=== PATIENT | female | born 1960 | race Caucasian/White ===

== ENCOUNTER 2020-07-10 08:44 | Day surgery (SDC) | payer MEDICARE ==
[2020-07-10] MEDS ORDERED: Depo-Medrol 40 MG/ML IM ONE (08:45)
[2020-07-10] MEDS ORDERED: Sodium Chloride 0.9(Preservative Free) 10 ML IJ ONE (08:45)
[2020-07-10] MEDS ORDERED: Ketamine HCl 50 MG/ML ONE (09:59)
[2020-07-10] MEDS ORDERED: DIPRIVAN 200 MG/20 ML IV ONE (09:59)
[2020-07-10] MEDS ORDERED: MORPHINE SULFATE 10 MG/ML ONE (10:20)
--- NOTE | 2020-07-10 10:56 | XRAY ---
Indication: Left L4-S1 transforaminal JAMES. Intraoperative fluoroscopy provided for 45 seconds. 4 digital spot images submitted for interpretation demonstrates posterior needle tips projecting over the expected left L4 and L5 nerve roots. Small amount of contrast injected for needle tip placement. Correlate with intraoperative findings/report.
--- NOTE | 2020-07-10 11:36 | XRAY ---
45 seconds fluoroscopy time in surgery for left L4S1 transforaminal JAMES.
[2020-07-10] MEDS ORDERED: Lactated Ringers 1,000 ML IV ONE (13:51)
== END 2020-07-10 10:24 | disposition home or self-care (01) ==
LOC: SDC-PAIN 08:44
PROVIDERS: ATTEND Psychiatry & Neurology Pain Medicine
DX: M54.16 Radiculopathy, lumbar region (principal); E11.9 Type 2 diabetes mellitus without complications; I10 Essential (primary) hypertension; I25.10 Atherosclerotic heart disease of native coronary artery without angina pectoris; E78.5 Hyperlipidemia, unspecified
CPT/HCPCS: 64483; 64484; 72100; 77003; 82947; J1030; J2270; J2704; Q9966

== ENCOUNTER 2020-08-28 08:57 | Day surgery (SDC) | payer MEDICARE ==
[2020-08-28] MEDS ORDERED: Depo-Medrol 40 MG/ML IM ONE (08:58)
[2020-08-28] MEDS ORDERED: Xylocaine 1% Vial 30 ML PF IJ ONE (08:58)
[2020-08-28] MEDS ORDERED: Sodium Chloride 0.9(Preservative Free) 10 ML IJ ONE (08:58)
[2020-08-28] MEDS ORDERED: DIPRIVAN 200 MG/20 ML IV ONE (10:02)
[2020-08-28] MEDS ORDERED: MORPHINE SULFATE 10 MG/ML ONE (10:22)
--- NOTE | 2020-08-28 10:55 | XRAY ---
Indication: Caudal JAMES. Intraoperative fluoroscopy provided for 18 seconds. 3 digital spot images submitted for interpretation demonstrates posterior caudal needle tip projecting just posterior to the mid sacrum. Small amount of contrast injected for needle tip placement. Correlate with intraoperative findings/report.
--- NOTE | 2020-08-28 10:58 | XRAY ---
18 seconds fluoroscopy time in surgery for caudal JAMES.
[2020-08-28] MEDS ORDERED: Lactated Ringers 1,000 ML IV ONE (16:18)
== END 2020-08-28 10:37 | disposition home or self-care (01) ==
LOC: SDC-PAIN 08:57
PROVIDERS: ATTEND Psychiatry & Neurology Pain Medicine
DX: M54.10 Radiculopathy, site unspecified (principal); K21.9 Gastro-esophageal reflux disease without esophagitis; I25.10 Atherosclerotic heart disease of native coronary artery without angina pectoris; I10 Essential (primary) hypertension; E78.5 Hyperlipidemia, unspecified; K57.90 Diverticulosis of intestine, part unspecified, without perforation or abscess without bleeding; E11.9 Type 2 diabetes mellitus without complications; Z79.899 Other long term (current) drug therapy
CPT/HCPCS: 62323; 72020; 77002; 82947; J1030; J2001; J2270; J2704; Q9966

== ENCOUNTER 2020-10-23 07:30 | Day surgery (SDC) | payer MEDICARE ==
[2020-10-23] MEDS ORDERED: Depo-Medrol 40 MG/ML IM ONE (07:31)
[2020-10-23] MEDS ORDERED: BUPIVACAINE 0.5% VIAL IJ ONE (07:31)
[2020-10-23] MEDS ORDERED: DIPRIVAN 200 MG/20 ML IV ONE (09:04)
--- NOTE | 2020-10-23 10:22 | XRAY ---
22 seconds fluoroscopy time in surgery for injections of both SI joints.
--- NOTE | 2020-10-23 10:32 | XRAY ---
Indication: Bilateral SI joint injections. Intraoperative fluoroscopy provided for 22 seconds. 4 digital spot images submitted for interpretation demonstrates posterior needle tip projecting over the inferior left and right SI joint. Correlate with intraoperative findings/report.
[2020-10-23] MEDS ORDERED: Lactated Ringers 1,000 ML IV ONE (15:51)
== END 2020-10-23 09:46 | disposition home or self-care (01) ==
LOC: SDC-PAIN 07:30
PROVIDERS: ATTEND Psychiatry & Neurology Pain Medicine
DX: M46.1 Sacroiliitis, not elsewhere classified (principal); E11.9 Type 2 diabetes mellitus without complications; Z79.899 Other long term (current) drug therapy
CPT/HCPCS: 27096; 72202; 77002; 82947; G0260; J1030; J2704

== ENCOUNTER 2020-11-13 09:14 | Day surgery (SDC) | payer MEDICARE ==
[2020-11-13] MEDS ORDERED: Xylocaine 1% Vial 30 ML PF IJ ONE (09:15)
[2020-11-13] MEDS ORDERED: BUPIVACAINE 0.5% VIAL IJ ONE (09:15)
[2020-11-13] MEDS ORDERED: Depo-Medrol 40 MG/ML IM ONE (09:15)
[2020-11-13] MEDS ORDERED: DIPRIVAN 200 MG/20 ML IV ONE (11:14)
--- NOTE | 2020-11-13 12:44 | XRAY ---
Indication: Bilateral hip and greater trochanter bursa injections. Intraoperative fluoroscopy provided for 56 seconds. 4 digital spot images submitted for interpretation demonstrates needle tips projecting lateral to the left/right femur neck and left/right greater trochanters. Small amount of contrast injected for all 4 needle tip placement. Correlate with intraoperative findings/report.
--- NOTE | 2020-11-13 14:41 | XRAY ---
56 seconds fluoroscopy time in surgery for bilateral greater trochanter and intra-articular injections of both hips.
[2020-11-13] MEDS ORDERED: Lactated Ringers 1,000 ML IV ONE (16:34)
== END 2020-11-13 11:50 | disposition home or self-care (01) ==
LOC: SDC-PAIN 09:14
PROVIDERS: ATTEND Psychiatry & Neurology Pain Medicine
DX: M16.0 Bilateral primary osteoarthritis of hip (principal); M70.62 Trochanteric bursitis, left hip; M70.61 Trochanteric bursitis, right hip; E11.9 Type 2 diabetes mellitus without complications; Z79.899 Other long term (current) drug therapy
CPT/HCPCS: 73522; 77002; 82947; J1030; J2001; J2704

== ENCOUNTER 2021-06-18 09:56 | Day surgery (SDC) | payer MEDICARE ==
[2021-06-18] MEDS ORDERED: LIDOCAINE HCL 2% 100 MG/5 ML IJ ONE (09:57)
[2021-06-18] MEDS ORDERED: DIPRIVAN 200 MG/20 ML IV ONE (12:02)
[2021-06-18] MEDS ORDERED: Lactated Ringers 1,000 ML IV ONE (12:46)
--- NOTE | 2021-06-18 12:53 | XRAY ---
Indication: Bilateral L4-S1 MBB. Intraoperative fluoroscopy provided for 20 seconds. Single digital spot image submitted for interpretation demonstrates posterior needle tips projecting over the expected left and right L4-S1 nerve roots. Correlate with intraoperative findings/report. Incidental L4-L5 spinous process fusion hardware.
--- NOTE | 2021-06-18 13:14 | XRAY ---
20 seconds of fluoroscopy was used in surgery for a bilateral L4-S1 MBB.
== END 2021-06-18 12:35 | disposition home or self-care (01) ==
LOC: SDC-PAIN 09:56
PROVIDERS: ATTEND Psychiatry & Neurology Pain Medicine
DX: M47.816 Spondylosis without myelopathy or radiculopathy, lumbar region (principal); E11.9 Type 2 diabetes mellitus without complications; I10 Essential (primary) hypertension; E78.5 Hyperlipidemia, unspecified; Z79.899 Other long term (current) drug therapy
CPT/HCPCS: 64493; 64494; 72020; 77002; 82947; J2704

== ENCOUNTER 2021-07-23 07:41 | Day surgery (SDC) | payer MEDICARE ==
[2021-07-23] MEDS ORDERED: BUPIVACAINE 0.5% VIAL IJ ONE (07:42)
[2021-07-23] MEDS ORDERED: Lactated Ringers 1,000 ML IV ONE (09:32)
[2021-07-23] MEDS ORDERED: DIPRIVAN 200 MG/20 ML IV ONE (09:59)
--- NOTE | 2021-07-23 11:35 | XRAY ---
Indication: Bilateral L4-S1 MBB. Intraoperative fluoroscopy provided for 12 seconds. Single digital spot image submitted for interpretation demonstrates posterior needle tips projecting over the expected left and right L4-S1 nerve roots. Correlate with intraoperative findings/report. Incidental L4-S1 spinous process fusion hardware.
--- NOTE | 2021-07-23 11:37 | XRAY ---
12 seconds of fluoroscopy was used in surgery for a bilateral L4-S1 MBB.
== END 2021-07-23 10:25 | disposition home or self-care (01) ==
LOC: SDC-PAIN 07:41
PROVIDERS: ATTEND Psychiatry & Neurology Pain Medicine
DX: M47.816 Spondylosis without myelopathy or radiculopathy, lumbar region (principal); E11.9 Type 2 diabetes mellitus without complications; I10 Essential (primary) hypertension; Z79.899 Other long term (current) drug therapy
CPT/HCPCS: 64493; 64494; 72020; 77002; 82947; J2704

== ENCOUNTER 2021-09-03 07:44 | Day surgery (SDC) | payer MEDICARE ==
[2021-09-03] MEDS ORDERED: Marcaine Mpf 0.5% Vial 30 Ml IJ ONE (07:45)
[2021-09-03] MEDS ORDERED: Xylocaine 1% Vial 30 ML PF IJ ONE (07:45)
[2021-09-03] MEDS ORDERED: Depo-Medrol 40 MG/ML IM ONE (07:45)
[2021-09-03] MEDS ORDERED: DIPRIVAN 200 MG/20 ML IV ONE (08:36)
[2021-09-03] MEDS ORDERED: Lactated Ringers 1,000 ML IV ONE (08:58)
--- NOTE | 2021-09-03 10:27 | XRAY ---
Indication: Left L4-S1 RFA. Intraoperative fluoroscopy provided for 18 seconds. 2 digital spot image submitted for interpretation demonstrates posterior needle tips projecting over the expected left L4-S1 nerve roots. Correlate with intraoperative findings/report. Incidental L4-L5 spinous process fusion hardware.
--- NOTE | 2021-09-03 10:30 | XRAY ---
18 seconds fluoroscopy time in surgery for left :L4-S1 RFA.
== END 2021-09-03 09:05 | disposition home or self-care (01) ==
LOC: SDC-PAIN 07:44
PROVIDERS: ATTEND Psychiatry & Neurology Pain Medicine
DX: M47.816 Spondylosis without myelopathy or radiculopathy, lumbar region (principal); I10 Essential (primary) hypertension; E11.9 Type 2 diabetes mellitus without complications; Z79.899 Other long term (current) drug therapy
CPT/HCPCS: 64635; 64636; 72100; 77002; 82947; J1030; J2001; J2704

== ENCOUNTER 2021-09-17 07:40 | Day surgery (SDC) | payer MEDICARE ==
[2021-09-17] MEDS ORDERED: Depo-Medrol 40 MG/ML IM ONE (07:41)
[2021-09-17] MEDS ORDERED: Marcaine Mpf 0.5% Vial 30 Ml IJ ONE (07:41)
[2021-09-17] MEDS ORDERED: XYLOCAINE-MPF 1% 5ML SDV IJ ONE (07:41)
[2021-09-17] MEDS ORDERED: DIPRIVAN 200 MG/20 ML IV ONE (08:58)
[2021-09-17] MEDS ORDERED: Lactated Ringers 1,000 ML IV ONE (09:07)
--- NOTE | 2021-09-17 11:43 | XRAY ---
Indication: Right L4-S1 RFA. Intraoperative fluoroscopy provided for 52 seconds. 4 digital spot images submitted for interpretation demonstrate posterior needle tips projecting over the expected right L4-S1 nerve roots. Correlate with intraoperative findings/report. Incidental L4-L5 spinous process fusion hardware.
--- NOTE | 2021-09-17 12:29 | XRAY ---
52 seconds of fluoroscopy was used in surgery for a right L4-S1 RFA.
== END 2021-09-17 09:35 | disposition home or self-care (01) ==
LOC: SDC-PAIN 07:40
PROVIDERS: ATTEND Psychiatry & Neurology Pain Medicine
DX: M47.816 Spondylosis without myelopathy or radiculopathy, lumbar region (principal); E11.9 Type 2 diabetes mellitus without complications; Z79.899 Other long term (current) drug therapy
CPT/HCPCS: 63685; 64635; 64636; 72100; 77002; 82947; J1030; J2704

== ENCOUNTER 2022-03-04 09:39 | Day surgery (SDC) | payer MEDICARE ==
[2022-03-04] MEDS ORDERED: BUPIVACAINE 0.5% VIAL IJ ONE (09:40)
[2022-03-04] MEDS ORDERED: Depo-Medrol 40 MG/ML IM ONE (09:40)
[2022-03-04] MEDS ORDERED: DIPRIVAN 200 MG/20 ML IV ONE (11:00)
[2022-03-04] MEDS ORDERED: Lactated Ringers 1,000 ML IV ONE (13:02)
--- NOTE | 2022-03-04 19:47 | XRAY ---
Indication: Bilateral SI joint injection. Intraoperative fluoroscopy provided for 14 seconds. 5 digital spot images submitted for interpretation demonstrates posterior needle tip projecting over the left and right SI joint. Correlate with intraoperative findings/report.
--- NOTE | 2022-03-04 20:02 | XRAY ---
14 seconds of fluoroscopy was used in surgery for bilateral SI joint injections.
== END 2022-03-04 11:51 | disposition home or self-care (01) ==
LOC: SDC-PAIN 09:39
PROVIDERS: ATTEND Psychiatry & Neurology Pain Medicine
DX: M46.1 Sacroiliitis, not elsewhere classified (principal); E11.9 Type 2 diabetes mellitus without complications; Z79.899 Other long term (current) drug therapy
CPT/HCPCS: 01992; 27096; 72202; 77002; 82947; G0260; J1030; J2704

== ENCOUNTER 2022-04-08 09:21 | Day surgery (SDC) | payer MEDICARE ==
[2022-04-08] MEDS ORDERED: BUPIVACAINE 0.5% VIAL IJ ONE (09:22)
[2022-04-08] MEDS ORDERED: Depo-Medrol 40 MG/ML IM ONE (09:22)
[2022-04-08] MEDS ORDERED: DIPRIVAN 200 MG/20 ML IV ONE (11:12)
--- NOTE | 2022-04-08 12:14 | XRAY ---
Indication: Left hip and greater trochanter injection. Intraoperative fluoroscopy provided for 24 seconds. 2 digital spot images submitted for interpretation demonstrates needle tip projecting lateral to the left femur neck and second needle tip lateral to greater trochanter. Small amount of contrast injected for both needle tip placement. Correlate with intraoperative findings/report.
--- NOTE | 2022-04-08 12:22 | XRAY ---
24 seconds fluoroscopy time in surgery for intra-articular and greater trochanteric injections of the left hip.
[2022-04-08] MEDS ORDERED: Lactated Ringers 1,000 ML IV ONE (15:31)
== END 2022-04-08 11:45 | disposition home or self-care (01) ==
LOC: SDC-PAIN 09:21
PROVIDERS: ATTEND Psychiatry & Neurology Pain Medicine
DX: M16.12 Unilateral primary osteoarthritis, left hip (principal); E11.9 Type 2 diabetes mellitus without complications; Z79.899 Other long term (current) drug therapy
CPT/HCPCS: 20610; 73502; 77002; 82947; J1030; J2704; Q9966

== ENCOUNTER 2022-10-29 07:18 | Day surgery (SDC) | payer MEDICARE ==
[2022-10-29] MEDS ORDERED: LIDOCAINE HCL 1% 50 MG/5 ML VL PF IJ ONE (07:19)
[2022-10-29] MEDS ORDERED: Depo-Medrol 40 MG/ML IM ONE (07:19)
[2022-10-29] MEDS ORDERED: BUPIVACAINE 0.5% VIAL IJ ONE (07:19)
[2022-10-29] MEDS ORDERED: DIPRIVAN 200 MG/20 ML IV ONE (09:30)
--- NOTE | 2022-10-29 11:00 | XRAY ---
Indication: Left L4-S1 RFA. Intraoperative fluoroscopy provided for 24 seconds. 4 digital spot image submitted for interpretation demonstrates posterior needle tips projecting over the expected left L4-S1 nerve roots. Correlate with intraoperative findings/report. Incidental L4-L5 spinous process fusion hardware.
[2022-10-29] MEDS ORDERED: Lactated Ringers 1,000 ML IV ONE (11:41)
== END 2022-10-29 10:06 | disposition home or self-care (01) ==
LOC: SDC-PAIN 07:18
PROVIDERS: ATTEND Psychiatry & Neurology Pain Medicine
DX: M47.817 Spondylosis without myelopathy or radiculopathy, lumbosacral region (principal); E11.9 Type 2 diabetes mellitus without complications; Z79.899 Other long term (current) drug therapy
CPT/HCPCS: 64635; 64636; 72100; 82947; J1030; J2001; J2704

== ENCOUNTER 2022-12-16 08:08 | Day surgery (SDC) | payer MEDICARE ==
[2022-12-16] MEDS ORDERED: LIDOCAINE HCL 1% 50 MG/5 ML VL PF IJ ONE (08:09)
[2022-12-16] MEDS ORDERED: Depo-Medrol 40 MG/ML IM ONE (08:09)
[2022-12-16] MEDS ORDERED: BUPIVACAINE 0.5% VIAL IJ ONE (08:09)
[2022-12-16] MEDS ORDERED: DIPRIVAN 200 MG/20 ML IV ONE (10:31)
[2022-12-16] MEDS ORDERED: Lactated Ringers 1,000 ML IV ONE (11:18)
--- NOTE | 2022-12-16 11:33 | XRAY ---
Indication: Right L4-S1 RFA. Intraoperative fluoroscopy provided for 36 seconds. 3 digital spot images submitted for interpretation demonstrates posterior needle tips projecting over the expected right L4-S1 nerve roots. Correlate with intraoperative findings/report. Incidental L4-L5 spinous process fusion hardware.
--- NOTE | 2022-12-16 13:56 | XRAY ---
36 seconds of fluoroscopy was used in surgery for a right L4-S1 RFA.
== END 2022-12-16 11:06 | disposition home or self-care (01) ==
LOC: SDC-PAIN 08:08
PROVIDERS: ATTEND Psychiatry & Neurology Pain Medicine
DX: M47.816 Spondylosis without myelopathy or radiculopathy, lumbar region (principal); E11.9 Type 2 diabetes mellitus without complications; Z79.899 Other long term (current) drug therapy
CPT/HCPCS: 64635; 64636; 72100; 77002; 82947; J1030; J2001; J2704

== ENCOUNTER 2024-04-27 07:43 | Day surgery (SDC) | payer MEDICARE ==
[2024-04-27] MEDS ORDERED: LIDOCAINE HCL 1% AMPUL 5 ML IJ ONE (07:44)
[2024-04-27] MEDS ORDERED: Sodium Chloride 0.9(Preservative Free) 10 ML IJ ONE (07:44)
[2024-04-27] MEDS ORDERED: dexAMETHasone sodium phosphate IJ ONE (07:44)
[2024-04-27] MEDS ORDERED: propofoL IV ONE (09:54)
[2024-04-27] MEDS ORDERED: MORPHINE SULFATE 2 MG INJ ONE (10:13)
--- NOTE | 2024-04-27 10:27 | XRAY ---
Indication: Left L3-L5 transforaminal JAMES. Intraoperative fluoroscopy provided for 30 seconds. 5 digital spot images submitted for interpretation demonstrates posterior needle tips projecting over expected left L3 and L4 nerve roots. Small amount of contrast injected for needle tip placement. Correlate with intraoperative findings/report. Incidental L4 and L5 spinous processes fusion hardware.
--- NOTE | 2024-04-27 10:29 | XRAY ---
Indication: Left piriformis injection. Intraoperative fluoroscopy provided for 7 seconds. Single digital spot images submitted for interpretation demonstrates posterior needle tip projecting over left piriformis. Small amount of contrast injected for needle tip placement. Correlate with intraoperative findings/report.
--- NOTE | 2024-04-27 10:29 | XRAY ---
7 seconds of fluoroscopy was used in surgery for a left piriformis injection.
--- NOTE | 2024-04-27 10:30 | XRAY ---
30 seconds of fluoroscopy was used in surgery for a left L3-L5 transforaminal JAMES.
== END 2024-04-27 10:48 | disposition home or self-care (01) ==
LOC: SDC-PAIN 07:43
PROVIDERS: ATTEND Psychiatry & Neurology Pain Medicine
DX: M54.16 Radiculopathy, lumbar region (principal); M79.18 Myalgia, other site; E11.9 Type 2 diabetes mellitus without complications
CPT/HCPCS: 20552; 64483; 64484; 72100; 72170; 77002; 77003; 82947; J1100; J2270; J2704; Q9966